=== PATIENT | female | born 2000 | race African-American/Black ===

== ENCOUNTER 2023-09-28 07:14 | Emergency (ER) | payer OTHER ==
[~2023-09-28] VITALS: Ht 162.6 cm; Wt 59.0 kg
[2023-09-28 07:19] VITALS: O2SAT 99
[2023-09-28] MEDS ORDERED: SODIUM CHLORIDE 0.9% 1,000 ML IV ONE (07:30)
[2023-09-28 08:04] LABS: BASOPHILS % 0.1 % (0.0-2.0); EOSINOPHILS % 0.4 % (0.0-5.0); HEMATOCRIT. 31.3 % (36.0-48.0); LYMPHOCYTES % 9.7 % (20.0-50.0); MEAN CORPUSCULAR HEMOGLOBIN 27.5 pg (28.0-32.0); MEAN CORPUSCULAR HGB CONC 31.9 g/dL (31.0-37.0); MEAN PLATELET VOLUME 7.7 fl (7.4-10.4); MONOCYTES % 5.3 % (2.0-8.0); NEUTROPHILS % 84.5 % (40.0-76.0); PLATELET 287 x1000/uL (130-400); RED BLOOD CELL COUNT 3.64 mill/uL (4.2-5.4); RED CELL DISTRIBUTION WIDTH 14.4 % (11.6-14.6); WHITE BLOOD COUNT 15.4 x1000/uL (4.5-11.0)
[2023-09-28 08:21] LABS: INR 0.9; PROTHROMBIN TIME 9.9 sec (9.6-11.0)
[2023-09-28 08:33] LABS: ALANINE AMINOTRANSFERASE 8 IU/L (10-49); ALBUMIN 4.2 g/dL (3.2-4.8); ASPARTATE AMINOTRANSFERASE 14 IU/L (<34); B-HCG QUANTITATIVE 15257 mIU/mL (<3); BILIRUBIN TOTAL 0.5 mg/dL (0.1-1.0); CARBON DIOXIDE 24 mEq/L (21-32); CHLORIDE 104 mEq/L (98-107); CREATININE 0.5 mg/dL (0.6-1.0); GLUCOSE 77 mg/dL (70-105); POTASSIUM 3.6 mEq/L (3.5-5.1); PROTEIN TOTAL 6.8 g/dL (6.0-8.3); SODIUM 134 mEq/L (136-145); UREA NITROGEN BLOOD 7 mg/dL (9-23)
[2023-09-28 08:51] VITALS: BP 112/71; PULSE 74; RESP 18; TEMP 98.6
== END 2023-09-28 08:51 | disposition left against medical advice (07) ==
LOC: ER 07:14
DX: O46.92 Antepartum hemorrhage, unspecified, second trimester (principal); Z3A.23 23 weeks gestation of pregnancy; Z91.040 Latex allergy status; Z88.8 Allergy status to other drugs, medicaments and biological substances
CPT/HCPCS: 99284; 96360; 80053; 84702; 85025; 85610; 86850; 86900; 86901; 36415; 76815; J7030